=== PATIENT | male | born 1945 | race Caucasian/White ===

== ENCOUNTER → 2018-10-13 12:59 | Emergency (ER) | payer BC, MEDICARE ==
--- NOTE | 2018-10-13 13:29 | ED ---
Psychiatric Complaint - HPI Summary HPI Summary: This pt is a 73 y/o male presenting to [facility] for depression. Pt notes he has intermittent SI thoughts of hurting himself but denies any today. Pt has numerous recent stressors, including who is scheduled for a Whipple procedure next week. Pt has a list of medications and is requesting to have his pharmacy called to make sure he isn't missing one. His medications are prescribed by his PCP, Dr. Mcdermott in [place]. Denies tobacco, drug, and alcohol use. - History Of Current Complaint Chief Complaint: EDMentalHealth Time Seen by Provider: 10/13/18 13:19 Hx Obtained From: Patient Onset/Duration: Lasting Days, Still Present Timing: Days Severity Currently: Mild Character: Depressed Aggravating Factor(s): Recent Stress Alleviating Factor(s): Nothing Associated Signs And Symptoms: Positive: Negative Has Suicidal: Reports: Thoughts. Denies: With A Plan Has Homicidal: Denies: Thoughts, With A Plan Recent Stressor(s): numerous, including with upcoming procedure - Allergies/Home Medications Allergies/Adverse Reactions: Allergies Allergy/AdvReac Type Severity Reaction Status Date / Time No Known Allergies Allergy Verified 03/19/13 22:17 Home Medications: Home Medications Atorvastatin Calcium 40 mg PO BEDTIME 10/13/18 [History Confirmed 10/13/18] Buspirone HCl 10 mg PO TID 10/13/18 [History Confirmed 10/13/18] Eplerenone 25 mg PO DAILY 10/13/18 [History Confirmed 10/13/18] Lisinopril 5 mg PO DAILY 10/13/18 [History Confirmed 10/13/18] Metoprolol Tartrate 25 mg PO DAILY 10/13/18 [History Confirmed 10/13/18] Pantoprazole Sodium 40 mg PO DAILY 10/13/18 [History Confirmed 10/13/18] PMH/Surg Hx/FS Hx/Imm Hx Cardiovascular History: Reports: Hx Hypercholesterolemia, Hx Hypertension Psychiatric History: Reports: Hx Anxiety, Hx Depression - Immunization History Date of Tetanus Vaccine: 03/19/13 Infectious Disease History: No Infectious Disease History: Denies: Traveled Outside the [place] in Last 30 Days - Family History Family History: Cancer. - Social History Alcohol Use: None Substance Use Type: Reports: None Smoking Status (MU): Never Smoked Tobacco Review of Systems Negative: Fever, Chills Respiratory: Negative Gastrointestinal: Negative Genitourinary: Negative Positive: Depressed. Negative: Other - NEG: SI or HI All Other Systems Reviewed And Are Negative: Yes Physical Exam - Summary Physical Exam Summary: Appearance: Well appearing, no pain distress Skin: warm, dry, reflects adequate perfusion Head/face: normal Eyes: EOMI, WILLIAM ENT: normal Neck: supple, non-tender Respiratory: CTA, breath sounds present Cardiovascular: RRR, pulses symmetrical Abdomen: non-tender, soft Musculoskeletal: normal, strength/ROM intact Neuro: normal, sensory motor intact, A&Ox3 Psych: depressed affect Triage Information Reviewed: Yes Vital Signs On Initial Exam: Initial Vitals Temp Pulse Resp BP Pulse Ox 97.8 F 62 18 142/85 98 10/13/18 13:00 10/13/18 13:00 10/13/18 13:00 10/13/18 13:00 10/13/18 13:00 Vital Signs Reviewed: Yes Diagnostics - Vital Signs Vital Signs Temp Pulse Resp BP Pulse Ox 10/13/18 13:00 97.8 F 62 18 142/85 98 - Laboratory Result Diagrams: 10/13/18 13:34 10/13/18 13:34 Lab Statement: Any lab studies that have been ordered have been reviewed, and results considered in the medical decision making process. Re-Evaluation - Re-Evaluation First Eval Re-Evaluation Time: 14:50 Comment: Pt is medically cleared. Course/Dx - Course Assessment/Plan: Pt is a 73 y/o male who presents to the ED for depression. Pt notes he has intermittent SI thoughts of hurting himself but denies any today. Blood work, urinalysis, toxicology obtained. Pt was medically cleared. He had a mental health evaluation and his case was reviewed by Dr. Zuñiga, psychiatrist. Dr. Zuñiga cleared the pt for discharge. Pt will be discharged home with dx depression. - Differential Dx/Clinical Impression Provider Diagnosis: Depression Discharge - Sign-Out/Discharge Documenting (check all that apply): Patient Departure - Discharge home Patient Received Moderate/Deep Sedation with Procedure: No - Discharge Plan Condition: Stable Disposition: HOME Patient Education Materials: Buspirone (By mouth), Generalized Anxiety Disorder (ED), Depression in Older Adults (ED) Referrals: Paris Trejo MD [Medical Doctor] - - Attestation Statements Document Initiated by Scribe: Yes Documenting Scribe: Karyn Archibald Provider For Whom Scribe is Documenting (Include Credential): Eric Carranza MD Scribe Attestation: IKaryn, scribed for Eric Carranza MD on 10/13/18 at 1851. Status of Scribe Document: Ready
[2018-10-13 13:40] LABS: ABS Basophils 0 10^3/ul (0-0.2); ABS Eosinophils 0.1 10^3/ul (0-0.6); ABS Lymphocytes 1.2 10^3/ul (1.0-4.8); ABS Monocytes 0.6 10^3/ul (0-0.8); ABS Neutrophils 3.5 10^3/ul (1.5-7.7); ABS Nucleated RBC 0 10^3/ul; Eosinophil % 2.7 %; Hematocrit 37 % (36-46); Hemoglobin 12.5 g/dL (14.0-18.0); Lymphocyte % 22.3 %; Mean Corpuscular HGB Conc 34 g/dL (31-36); Mean Corpuscular Hemoglobin 32 pg (27-31); Mean Corpuscular Volume 95 fL (80-94); Mean Platelet Volume 8.5 fL (7.4-10.4); Nucleated Red Blood Cells % 0; Platelet Count 107 10^3/uL (150-450); Red Blood Count 3.89 10^6 /uL (4.18-5.48); Red Cell Distribution Width 15 % (10.5-15); White Blood Count 5.5 10^3/uL (3.5-10.8)
[2018-10-13 14:09] LABS: ALT 10 U/L (7-52); AST 15 U/L (13-39); Albumin/Globulin Ratio 1.6 (1-3); Alkaline Phosphatase 72 U/L (34-104); Anion Gap 8 mmol/L (2-11); BUN/Creatinine Ratio 16.9 (8-20); Blood Urea Nitrogen 21 mg/dL (6-24); CO2 Carbon Dioxide 24 mmol/L (22-32); Calcium 8.7 mg/dL (8.6-10.3); Chloride 110 mmol/L (101-111); EGFR African American 69.1 (>60); EGFR Non-African American 57.1 (>60); Globulin 2.5 g/dL (2-4); Glucose 138 mg/dL (70-100); Sodium 142 mmol/L (135-145); Total Protein 6.5 g/dL (6.4-8.9)
[2018-10-13 14:32] LABS: Acetaminophen < 15 mcg/mL; Alcohol < 10 mg/dL (<10); Salicylate < 2.50 mg/dL (<30)
[2018-10-13 14:42] LABS: Urine Appearance Clear; Urine Bilirubin Negative (Negative); Urine Blood Negative (Negative); Urine Color Yellow; Urine Glucose Negative (Negative); Urine Ketones Negative (Negative); Urine Nitrite Negative (Negative); Urine Protein Negative (Negative); Urine Urobilinogen Negative (Negative)
[2018-10-13 14:46] LABS: TSH (Thyroid Stimulating Horm) 2.09 mcIU/mL (0.34-5.60)
[2018-10-13 15:02] LABS: Barbiturates Urine Screen None Detected (None Detect); Benzodiazepine Urine Screen None Detected (None Detect); Urine Cannabinoids Screen None Detected (None Detect)
[2018-10-13 18:46] VITALS: BP 140/82
== END | disposition home or self-care (01) ==
LOC: ED 12:59
DX: F32.9 Major depressive disorder, single episode, unspecified (principal); I10 Essential (primary) hypertension; E78.00 Pure hypercholesterolemia, unspecified; F41.9 Anxiety disorder, unspecified; Z79.899 Other long term (current) drug therapy
CPT/HCPCS: 36415; 80053; 80307; 80320; 80329; 81003; 84443; 85025; 99283; G0480